=== PATIENT | male | born 1965 | race Caucasian/White ===

== ENCOUNTER 2021-04-23 08:44 | Inpatient (IN) | payer MEDICARE, MEDICAID ==
[~2021-04-23] VITALS: Ht 170.2 cm; Wt 72.8 kg
[2021-04-23] VITALS (33 sets, daily range): BP systolic 115–155; BP diastolic 59–103
[2021-04-23] MEDS ORDERED: LABETALOL 5MG/ML SYR 20 MG/4 ML SYRINGE IV ONE (09:00)
[2021-04-23] MEDS ORDERED: NICARDIPINE 50 MG in SODIUM CHLORIDE 0.9% 230 ML IV STA (09:07)
[2021-04-23] MEDS ORDERED: MANNITOL 20% 250 ML IV ONE (09:15)
[2021-04-23] MEDS ORDERED: DEXAMETHASONE 10 MG/ML VIAL IV ONE (09:15)
[2021-04-23] MEDS ORDERED: LEVETIRACETAM 500MG PREMIX 100 ML IV ONE (09:15)
[2021-04-23] MEDS ORDERED: NICARDIPINE 50 MG in SODIUM CHLORIDE 0.9% 230 ML IV SCH (09:30)
[2021-04-23] MEDS ORDERED: MANNITOL 20% 250 ML IV SCH (09:30)
[2021-04-23 09:42] LABS: CHLORIDE 104 mEq/L (98-107)
[2021-04-23 09:43] LABS: BASOPHILS % 1.2 % (0.0-2.0); EOSINOPHILS % 1.2 % (0.0-5.0); HEMATOCRIT. 42.8 % (42.0-52.0); HEMOGLOBIN. 14.2 g/dL (14.0-18.0); LYMPHOCYTES % 29.7 % (20.0-50.0); MEAN CORPUSCULAR VOLUME 96.6 fL (80.0-94.0); MEAN PLATELET VOLUME 8.6 fl (7.4-10.4); MONOCYTES % 9.7 % (2.0-8.0); NEUTROPHILS % 58.2 % (40.0-76.0); PLATELET 274 x1000/uL (130-400); RED BLOOD CELL COUNT 4.43 mill/uL (4.7-6.1); RED CELL DISTRIBUTION WIDTH 13.7 % (11.6-14.6)
[2021-04-23 09:47] LABS: ETHANOL BLOOD < 10 mg/dL
[2021-04-23] MEDS ORDERED: NALOXONE HCL 0.4MG/ML VIAL IV PRN (10:15)
[2021-04-23] MEDS: DEXT 5%/LACTATED RINGERS 1,000 ML IV SCH (10:20)
[2021-04-23] MEDS: MORPHINE SULFATE 2 MG/ML CPJ (NOT FOR IM USE) IV PRN ×4 (10:47→23:17)
[2021-04-23] MEDS ORDERED: ACETAMINOPHEN 650MG/20.3ML UDC GT PRN (11:00)
[2021-04-23] MEDS ORDERED: ACETAMINOPHEN 650MG SUPP PR PRN (11:00)
[2021-04-23] MEDS ORDERED: NICARDIPINE 100 MG in SODIUM CHLORIDE 0.9% 60 ML IV PRN (11:00)
[2021-04-23] MEDS ORDERED: ONDANSETRON HCL 4MG/2ML INJ IV PRN (11:00)
[2021-04-23 11:08] LABS: PROTHROMBIN TIME 11.2 sec (9.6-11.0)
[2021-04-23 11:27] LABS: CLARITY URINE CLEAR (CLEAR); COLOR URINE YELLOW (YELLOW); KETONES URINE NEGATIVE (NEGATIVE); LEUKOCYTE ESTERASE URINE NEGATIVE (NEGATIVE); NITRITE URINE NEGATIVE (NEGATIVE); OCCULT BLOOD URINE NEGATIVE (NEGATIVE); PROTEIN URINE 2+ (NEGATIVE); SPECIFIC GRAVITY URINE 1.015 (1.005-1.030)
[2021-04-23] MEDS ORDERED: KCL 20MEQ/100ML PREMIX 100 ML IV NR (11:30)
[2021-04-23 12:19] LABS: FOLIC ACID (FOLATE) SERUM 18.1 ng/mL (>5.38)
[2021-04-23 12:21] LABS: *AMPHETAMINES SCREEN URINE NEGATIVE (NEGATIVE); *BARBITURATES SCREEN URINE NEGATIVE (NEGATIVE); *BENZODIAZEPINES SCREEN URINE NEGATIVE (NEGATIVE); *COCAINE SCREEN URINE NEGATIVE (NEGATIVE); CANNABINOID URINE SCREEN NEGATIVE (NEGATIVE); METHADONE URINE SCREEN NEGATIVE (NEGATIVE); OPIATES URINE SCREEN NEGATIVE (NEGATIVE); PHENCYCLIDINE URINE SCREEN NEGATIVE (NEGATIVE)
[2021-04-23] MEDS: DEXAMETHASONE 4MG/ML 1ML VIAL IV SCH ×3 (12:21→23:16)
[2021-04-23] MEDS ORDERED: PNEUMOCOCCAL 23-VAL P-SAC VAC 0.5 ML IM ONE (16:45)
[2021-04-23] MEDS ORDERED: INFLUENZA VACCINE 05/PF 0.5 ML SYRINGE IM ONE (16:45)
[2021-04-23] MEDS ORDERED: OMEP20TA2 MT (17:13)
[2021-04-23] MEDS ORDERED: AMLO5TAB88 PO (17:13)
[2021-04-23] MEDS ORDERED: ALLO300T2 PO (17:13)
[2021-04-23] MEDS ORDERED: LOSA100T32 MT (17:13)
[2021-04-23] MEDS ORDERED: HYDR-4134 MT (17:13)
[2021-04-23] MEDS ORDERED: ERGO1250 (17:13)
[2021-04-23] MEDS ORDERED: DICL75TA5 PO (17:13)
[2021-04-23] MEDS ORDERED: *PATIENT'S OWN MEDICATION STORAGE XX SCH (17:30)
[2021-04-23] MEDS: NICARDIPINE 100 MG in SODIUM CHLORIDE 0.9% 60 ML IV PRN (17:35)
[2021-04-23] MEDS: LEVETIRACETAM 500MG PREMIX 100 ML IV SCH (21:44)
[2021-04-24] VITALS (96 sets, daily range): BP systolic 79–151; BP diastolic 37–95
[2021-04-24] MEDS: DEXT 5%/LACTATED RINGERS 1,000 ML IV SCH ×2 (01:39→09:39)
[2021-04-24] MEDS: MORPHINE SULFATE 2 MG/ML CPJ (NOT FOR IM USE) IV PRN ×5 (02:21→21:53)
[2021-04-24 05:38] LABS: HEMATOCRIT. 41.1 % (42.0-52.0); HEMOGLOBIN. 13.6 g/dL (14.0-18.0); MEAN CORPUSCULAR HEMOGLOBIN 32.8 pg (28.0-32.0); MEAN PLATELET VOLUME 9.7 fl (7.4-10.4); PLATELET 229 x1000/uL (130-400); RED BLOOD CELL COUNT 4.15 mill/uL (4.7-6.1); RED CELL DISTRIBUTION WIDTH 13.7 % (11.6-14.6)
[2021-04-24] MEDS: DEXAMETHASONE 4MG/ML 1ML VIAL IV SCH ×4 (05:59→23:11)
[2021-04-24] MEDS: PANTOPRAZOLE SODIUM 40 MG/VIAL IV SCH (08:59)
[2021-04-24 09:06] LABS: PLATELET ESTIMATE NORMAL
[2021-04-24] MEDS: LEVETIRACETAM 500MG PREMIX 100 ML IV SCH ×2 (09:39→20:30)
[2021-04-24 10:42] LABS: CHLORIDE 111 mEq/L (98-107)
[2021-04-24 10:48] LABS: PHOSPHORUS 2.8 mg/dL (2.5-4.9)
[2021-04-24] MEDS: NICARDIPINE 100 MG in SODIUM CHLORIDE 0.9% 60 ML IV PRN (13:19)
[2021-04-25] VITALS (66 sets, daily range): BP systolic 93–140; BP diastolic 47–88
[2021-04-25] MEDS: NICARDIPINE 100 MG in SODIUM CHLORIDE 0.9% 60 ML IV PRN (00:39)
[2021-04-25] MEDS: DEXT 5%/LACTATED RINGERS 1,000 ML IV SCH ×2 (02:14→21:29)
[2021-04-25] MEDS: DEXAMETHASONE 4MG/ML 1ML VIAL IV SCH ×2 (05:14→12:08)
[2021-04-25] MEDS: LEVETIRACETAM 500MG PREMIX 100 ML IV SCH ×2 (09:13→20:52)
[2021-04-25] MEDS: PANTOPRAZOLE SODIUM 40 MG/VIAL IV SCH (09:14)
[2021-04-25] MEDS ORDERED: AMLODIPINE 10MG TABLET PO SCH (10:30)
[2021-04-25] MEDS: AMLODIPINE 10MG TABLET PO SCH (11:29)
[2021-04-25] MEDS: MORPHINE SULFATE 2 MG/ML CPJ (NOT FOR IM USE) IV PRN ×4 (12:13→20:52)
[2021-04-25] MEDS: ACETAMINOPHEN 325MG TABLET PO PRN (15:11)
[2021-04-26] VITALS (46 sets, daily range): BP systolic 109–160; BP diastolic 28–113
[2021-04-26 05:23] LABS: CHLORIDE 110 mEq/L (98-107)
[2021-04-26 05:26] LABS: HEMATOCRIT. 39.3 % (42.0-52.0); HEMOGLOBIN. 12.7 g/dL (14.0-18.0); MEAN CORPUSCULAR HEMOGLOBIN 31.5 pg (28.0-32.0); MEAN CORPUSCULAR VOLUME 97.5 fL (80.0-94.0); MEAN PLATELET VOLUME 9.2 fl (7.4-10.4); PLATELET 221 x1000/uL (130-400); RED BLOOD CELL COUNT 4.03 mill/uL (4.7-6.1); RED CELL DISTRIBUTION WIDTH 13.8 % (11.6-14.6)
[2021-04-26] MEDS: AMLODIPINE 10MG TABLET PO SCH (08:38)
[2021-04-26] MEDS: LEVETIRACETAM 500MG PREMIX 100 ML IV SCH ×2 (08:39→21:36)
[2021-04-26] MEDS: PANTOPRAZOLE SODIUM 40 MG/VIAL IV SCH (08:43)
[2021-04-26] MEDS: MORPHINE SULFATE 2 MG/ML CPJ (NOT FOR IM USE) IV PRN ×3 (08:52→23:27)
[2021-04-26] MEDS: ACETAMINOPHEN 325MG TABLET PO PRN (14:25)
[2021-04-26 16:11] LABS: PLATELET ESTIMATE NORMAL
[2021-04-26] MEDS: CLONIDINE 0.1MG TABLET PO PRN (19:05)
[2021-04-27] VITALS: BP 143/78
[2021-04-27 04:00] VITALS: BP 143/78
[2021-04-27] MEDS: MORPHINE SULFATE 2 MG/ML CPJ (NOT FOR IM USE) IV PRN ×3 (07:36→18:24)
[2021-04-27] MEDS: LEVETIRACETAM 500MG PREMIX 100 ML IV SCH ×2 (09:07→20:40)
[2021-04-27] MEDS: PANTOPRAZOLE SODIUM 40 MG/VIAL IV SCH (09:07)
[2021-04-27] MEDS: AMLODIPINE 10MG TABLET PO SCH (09:08)
[2021-04-27 12:00] VITALS: BP 125/73
[2021-04-27] MEDS: LISINOPRIL 40MG TABLET PO SCH (14:06)
[2021-04-27 16:00] VITALS: BP 129/79
[2021-04-27 20:00] VITALS: BP 116/71
[2021-04-27] MEDS: FAMOTIDINE 20MG TABLET PO SCH (20:40)
[2021-04-28] VITALS: BP 134/72
[2021-04-28] MEDS: MORPHINE SULFATE 2 MG/ML CPJ (NOT FOR IM USE) IV PRN ×2 (00:21→05:39)
[2021-04-28 04:00] VITALS: BP 154/85
[2021-04-28] MEDS: FAMOTIDINE 20MG TABLET PO SCH ×2 (06:24→22:36)
[2021-04-28] MEDS: LISINOPRIL 40MG TABLET PO SCH (10:45)
[2021-04-28] MEDS: AMLODIPINE 10MG TABLET PO SCH (10:45)
[2021-04-28 12:00] VITALS: BP 105/61
[2021-04-28] MEDS: LEVETIRACETAM 500MG PREMIX 100 ML IV SCH ×2 (13:23→22:36)
[2021-04-28] MEDS: ACETAMINOPHEN 325MG TABLET PO PRN ×2 (13:45→22:49)
[2021-04-28] MEDS: CYANOCOBALAMIN 1000MCG/ML VIAL IM SCH (14:00)
[2021-04-28 16:00] VITALS: BP 156/76
[2021-04-28] MEDS: CLONIDINE 0.1MG TABLET PO PRN (16:57)
[2021-04-28 20:00] VITALS: BP 149/75
[2021-04-29] VITALS (7 sets, daily range): BP systolic 133–160; BP diastolic 70–96
[2021-04-29] MEDS: KETOROLAC 30MG/ML VIAL IV PRN ×3 (01:50→18:40)
[2021-04-29] MEDS: ACETAMINOPHEN 325MG TABLET PO PRN (03:56)
[2021-04-29] MEDS ORDERED: THIAMINE HCL 100MG TABLET PO SCH (09:00)
[2021-04-29] MEDS ORDERED: FOLIC ACID 1MG TABLET PO SCH (09:00)
[2021-04-29] MEDS: FAMOTIDINE 20MG TABLET PO SCH ×2 (09:40→20:17)
[2021-04-29] MEDS: LEVETIRACETAM 500MG TABLET PO SCH ×2 (09:40→16:22)
[2021-04-29] MEDS: LISINOPRIL 40MG TABLET PO SCH (09:40)
[2021-04-29] MEDS: AMLODIPINE 10MG TABLET PO SCH (09:41)
[2021-04-29] MEDS: CYANOCOBALAMIN 1000MCG/ML VIAL IM SCH (09:41)
[2021-04-29] MEDS ORDERED: ATENOLOL 25MG TABLET PO SCH (10:30)
[2021-04-29] MEDS: BUTALBITAL/ACETAMINOPHEN/CAFFEINE 50/325/40MG TABLET PO PRN ×2 (14:51→20:23)
[2021-04-29] MEDS ORDERED: TOPUD PO (20:58)
[2021-05-11] MEDS ORDERED: CYANOCOBALAMIN 1000MCG/ML VIAL IM SCH (09:00)
== END 2021-04-29 21:50 | DRG 65 ==
LOC: ER 09:07 → EDBEDREQTM 09:12 → EDBEDREQSVC 09:19 → EDBEDREQ 09:19 → EDBEDREQTM 09:19 → MICUSO 09:57 → EDBEDREQTM 09:59 → EDBEDREQ 09:59 → ENRESERV 15:28 → 6EST 04-26 23:41
PROVIDERS: ADMIT Internal Medicine; ATTEND Internal Medicine
DX: I61.5 Nontraumatic intracerebral hemorrhage, intraventricular (principal); I16.1 Hypertensive emergency; G81.94 Hemiplegia, unspecified affecting left nondominant side; R47.01 Aphasia; R41.4 Neurologic neglect syndrome; E87.6 Hypokalemia; E88.09 Other disorders of plasma-protein metabolism, not elsewhere classified; M19.90 Unspecified osteoarthritis, unspecified site; D64.9 Anemia, unspecified; Z20.822 Contact with and (suspected) exposure to COVID-19; E53.8 Deficiency of other specified B group vitamins; R53.81 Other malaise; R47.81 Slurred speech; I61.0 Nontraumatic intracerebral hemorrhage in hemisphere, subcortical; Z91.14 Patient's other noncompliance with medication regimen; Z82.49 Family history of ischemic heart disease and other diseases of the circulatory system; Z91.19 Patient's noncompliance with other medical treatment and regimen
CPT/HCPCS: 36415; 71045; 80048; 80053; 80305; 80320; 81003; 82607; 82746; 82962; 83540; 83550; 83735; 84100; 84443; 84484; 85025; 86850; 86900; 87426; 93005; 93970; 97110; 97116; 97162; 97166; 97530; 99291; C9113; J1100; J1885; J1953; J2270; J2405; J3420; J3480; J3490; J7040; J7050; G0480

== ENCOUNTER 2021-04-29 22:10 | Inpatient (IN) | payer MEDICARE, MEDICAID ==
[~2021-04-29] VITALS: Ht 170.2 cm; Wt 61.9 kg
[2021-04-29 22:10] VITALS: BP 140/70
[~2021-04-29 22:10] MED LIST: ALLO300T2 PO; AMLO5TAB88 PO; DICL75TA5 PO; ERGO1250; HYDR-4134 MT; LOSA100T32 MT; OMEP20TA2 MT; TOPUD PO
[2021-04-29] MEDS ORDERED: CLONIDINE 0.1MG TABLET PO PRN (22:45)
[2021-04-29] MEDS ORDERED: ONDANSETRON HCL 4MG/2ML INJ IV PRN (22:45)
[2021-04-29] MEDS ORDERED: ACETAMINOPHEN 650MG SUPP PR PRN (22:45)
[2021-04-29] MEDS: ACETAMINOPHEN 325MG TABLET PO PRN (23:35)
[2021-04-30] MEDS ORDERED: *PATIENT'S OWN MEDICATION STORAGE XX SCH (01:15)
[2021-04-30] MEDS: KETOROLAC 30MG/ML VIAL IV PRN ×3 (02:07→18:13)
[2021-04-30] MEDS: FAMOTIDINE 20MG TABLET PO SCH ×4 (05:42→22:44)
[2021-04-30] MEDS: BUTALBITAL/ACETAMINOPHEN/CAFFEINE 50/325/40MG TABLET PO PRN ×3 (05:47→15:25)
[2021-04-30 07:30] LABS: BASOPHILS % 0.3 % (0.0-2.0); HEMATOCRIT. 40.6 % (42.0-52.0); LYMPHOCYTES % 20.6 % (20.0-50.0); MEAN CORPUSCULAR HEMOGLOBIN 32.7 pg (28.0-32.0); MEAN CORPUSCULAR VOLUME 94.4 fL (80.0-94.0); MEAN PLATELET VOLUME 8.8 fl (7.4-10.4); MONOCYTES % 10.4 % (2.0-8.0); NEUTROPHILS % 66.7 % (40.0-76.0); PLATELET 263 x1000/uL (130-400); RED CELL DISTRIBUTION WIDTH 13.2 % (11.6-14.6)
[2021-04-30 07:46] LABS: CHLORIDE 101 mEq/L (98-107)
[2021-04-30 08:00] VITALS: BP 133/61
[2021-04-30] MEDS ORDERED: ATENOLOL 25MG TABLET PO SCH (09:00)
[2021-04-30] MEDS: AMLODIPINE 10MG TABLET PO SCH (09:40)
[2021-04-30] MEDS: FOLIC ACID 1MG TABLET PO SCH (09:40)
[2021-04-30] MEDS: LEVETIRACETAM 500MG TABLET PO SCH ×2 (09:40→18:12)
[2021-04-30] MEDS: LISINOPRIL 40MG TABLET PO SCH (09:41)
[2021-04-30] MEDS: THIAMINE HCL 100MG TABLET PO SCH (09:41)
[2021-04-30] MEDS: CYANOCOBALAMIN 1000MCG/ML VIAL IM SCH (09:49)
[2021-04-30] MEDS ORDERED: INFLUENZA VACCINE 05/PF 0.5 ML SYRINGE IM ONE (12:00)
[2021-04-30] MEDS ORDERED: IOHEXOL-350 100 ML BOTTLE ONE (12:07)
[2021-04-30] MEDS: ACETAMINOPHEN 325MG TABLET PO PRN (15:25)
[2021-04-30 20:00] VITALS: BP 167/77
[2021-05-01] MEDS: FAMOTIDINE 20MG TABLET PO SCH ×4 (07:07→20:38)
[2021-05-01 07:10] LABS: HEMATOCRIT. 44.9 % (42.0-52.0); HEMOGLOBIN. 15.5 g/dL (14.0-18.0); MEAN CORPUSCULAR HEMOGLOBIN 32.4 pg (28.0-32.0); MEAN CORPUSCULAR VOLUME 93.6 fL (80.0-94.0); MEAN PLATELET VOLUME 9.4 fl (7.4-10.4); PLATELET 284 x1000/uL (130-400); RED CELL DISTRIBUTION WIDTH 13.3 % (11.6-14.6)
[2021-05-01 07:28] LABS: CHLORIDE 98 mEq/L (98-107)
[2021-05-01 08:00] VITALS: BP 166/82
[2021-05-01] MEDS: FOLIC ACID 1MG TABLET PO SCH (09:37)
[2021-05-01] MEDS: HYDRALAZINE HCL 50MG TABLET PO SCH ×3 (09:37→21:11)
[2021-05-01] MEDS: LEVETIRACETAM 500MG TABLET PO SCH ×2 (09:37→18:24)
[2021-05-01] MEDS: CYANOCOBALAMIN 1000MCG/ML VIAL IM SCH (09:37)
[2021-05-01] MEDS: AMLODIPINE 10MG TABLET PO SCH (09:38)
[2021-05-01] MEDS: LISINOPRIL 40MG TABLET PO SCH (09:39)
[2021-05-01] MEDS: THIAMINE HCL 100MG TABLET PO SCH (09:39)
[2021-05-01] MEDS ORDERED: LACTULOSE 20G/30ML UDC PO SCH (12:00)
[2021-05-01 13:53] LABS: PLATELET ESTIMATE NORMAL
[2021-05-01] MEDS: KETOROLAC 30MG/ML VIAL IV PRN (15:06)
[2021-05-01] MEDS: BUTALBITAL/ACETAMINOPHEN/CAFFEINE 50/325/40MG TABLET PO PRN (18:24)
[2021-05-01] MEDS ORDERED: NA PHOS,M-B/NA PHOS,DI-BA ENEMA 118ML PR NR (19:00)
[2021-05-01 20:00] VITALS: BP 136/75
[2021-05-01] MEDS: LACTULOSE 20G/30ML UDC PO SCH (20:38)
[2021-05-01 21:31] LABS: CLARITY URINE CLEAR (CLEAR); COLOR URINE YELLOW (YELLOW); KETONES URINE NEGATIVE (NEGATIVE); LEUKOCYTE ESTERASE URINE TRACE (NEGATIVE); NITRITE URINE NEGATIVE (NEGATIVE); OCCULT BLOOD URINE NEGATIVE (NEGATIVE); PROTEIN URINE 2+ (NEGATIVE); SPECIFIC GRAVITY URINE 1.017 (1.005-1.030)
[2021-05-02] MEDS: LACTULOSE 20G/30ML UDC PO SCH (03:25)
[2021-05-02] MEDS ORDERED: FAMOTIDINE 20MG TABLET PO SCH (03:45)
[2021-05-02] MEDS: FAMOTIDINE 20MG TABLET PO SCH ×2 (06:14→17:51)
[2021-05-02] MEDS: HYDRALAZINE HCL 50MG TABLET PO SCH ×3 (06:14→22:19)
[2021-05-02] MEDS: BUTALBITAL/ACETAMINOPHEN/CAFFEINE 50/325/40MG TABLET PO PRN (06:18)
[2021-05-02 08:26] VITALS: BP 156/75
[2021-05-02 08:42] LABS: CHLORIDE 103 mEq/L (98-107)
[2021-05-02 08:43] LABS: BASOPHILS % 0.5 % (0.0-2.0); EOSINOPHILS % 0.1 % (0.0-5.0); HEMATOCRIT. 45.7 % (42.0-52.0); HEMOGLOBIN. 15.7 g/dL (14.0-18.0); LYMPHOCYTES % 8.2 % (20.0-50.0); MEAN CORPUSCULAR HEMOGLOBIN 32.5 pg (28.0-32.0); MEAN CORPUSCULAR VOLUME 94.7 fL (80.0-94.0); MEAN PLATELET VOLUME 8.8 fl (7.4-10.4); MONOCYTES % 10.9 % (2.0-8.0); NEUTROPHILS % 80.3 % (40.0-76.0); PLATELET 264 x1000/uL (130-400); RED BLOOD CELL COUNT 4.83 mill/uL (4.7-6.1); RED CELL DISTRIBUTION WIDTH 13.6 % (11.6-14.6)
[2021-05-02] MEDS: CYANOCOBALAMIN 1000MCG/ML VIAL IM SCH (09:50)
[2021-05-02] MEDS: LEVETIRACETAM 500MG TABLET PO SCH ×2 (09:50→17:51)
[2021-05-02] MEDS: FOLIC ACID 1MG TABLET PO SCH (09:50)
[2021-05-02] MEDS: ACETAMINOPHEN 500MG TABLET PO SCH ×3 (09:51→22:18)
[2021-05-02] MEDS: AMLODIPINE 10MG TABLET PO SCH (09:51)
[2021-05-02] MEDS: LISINOPRIL 40MG TABLET PO SCH (09:56)
[2021-05-02] MEDS: THIAMINE HCL 100MG TABLET PO SCH (09:56)
[2021-05-02 20:00] VITALS: BP 129/70
[2021-05-03] MEDS: ACETAMINOPHEN 500MG TABLET PO SCH ×4 (02:41→21:38)
[2021-05-03] MEDS: HYDRALAZINE HCL 50MG TABLET PO SCH ×3 (06:00→21:38)
[2021-05-03 06:29] LABS: BASOPHILS % 0.5 % (0.0-2.0); HEMATOCRIT. 42.4 % (42.0-52.0); HEMOGLOBIN. 14.3 g/dL (14.0-18.0); LYMPHOCYTES % 14.8 % (20.0-50.0); MEAN CORPUSCULAR HEMOGLOBIN 32.3 pg (28.0-32.0); MEAN CORPUSCULAR VOLUME 95.9 fL (80.0-94.0); MEAN PLATELET VOLUME 9.2 fl (7.4-10.4); MONOCYTES % 13.9 % (2.0-8.0); NEUTROPHILS % 69.8 % (40.0-76.0); PLATELET 259 x1000/uL (130-400); RED BLOOD CELL COUNT 4.42 mill/uL (4.7-6.1); RED CELL DISTRIBUTION WIDTH 13.8 % (11.6-14.6)
[2021-05-03] MEDS: FAMOTIDINE 20MG TABLET PO SCH ×2 (06:32→18:10)
[2021-05-03] MEDS: CYANOCOBALAMIN 1000MCG/ML VIAL IM SCH (08:22)
[2021-05-03] MEDS: THIAMINE HCL 100MG TABLET PO SCH (08:23)
[2021-05-03] MEDS: LISINOPRIL 40MG TABLET PO SCH ×2 (08:23→08:26)
[2021-05-03] MEDS: LEVETIRACETAM 500MG TABLET PO SCH ×2 (08:28→18:10)
[2021-05-03] MEDS: AMLODIPINE 10MG TABLET PO SCH (08:29)
[2021-05-03] MEDS: FOLIC ACID 1MG TABLET PO SCH (08:44)
[2021-05-03 09:36] VITALS: BP_SYST 85; BP_SYST 93; BP_SYST 94; BP_DIAS 44; BP_DIAS 55; BP_DIAS 64
[2021-05-03] MEDS: BUTALBITAL/ACETAMINOPHEN/CAFFEINE 50/325/40MG TABLET PO PRN ×2 (13:02→18:05)
[2021-05-03 20:00] VITALS: BP 112/54
[2021-05-03] MEDS: AMOXICILLIN 500 MG CAPSULE PO SCH (21:37)
[2021-05-04] MEDS: ACETAMINOPHEN 500MG TABLET PO SCH ×4 (03:00→22:27)
[2021-05-04] MEDS: HYDRALAZINE HCL 50MG TABLET PO SCH (05:31)
[2021-05-04] MEDS: FAMOTIDINE 20MG TABLET PO SCH ×2 (06:44→17:26)
[2021-05-04 08:00] VITALS: BP 103/57
[2021-05-04] MEDS: AMLODIPINE 10MG TABLET PO SCH (10:00)
[2021-05-04] MEDS: LISINOPRIL 40MG TABLET PO SCH (10:00)
[2021-05-04] MEDS: CYANOCOBALAMIN 1000MCG/ML VIAL IM SCH (10:01)
[2021-05-04] MEDS: LEVETIRACETAM 500MG TABLET PO SCH ×2 (10:02→17:25)
[2021-05-04] MEDS: THIAMINE HCL 100MG TABLET PO SCH (10:02)
[2021-05-04] MEDS: AMOXICILLIN 500 MG CAPSULE PO SCH ×2 (10:02→22:26)
[2021-05-04] MEDS: FOLIC ACID 1MG TABLET PO SCH (10:03)
[2021-05-04] MEDS: BUTALBITAL/ACETAMINOPHEN/CAFFEINE 50/325/40MG TABLET PO PRN ×2 (11:09→17:28)
[2021-05-04] MEDS: KETOROLAC 30MG/ML VIAL IV PRN (14:08)
[2021-05-04 15:26] LABS: BASOPHILS % 0.4 % (0.0-2.0); EOSINOPHILS % 1.9 % (0.0-5.0); HEMATOCRIT. 41.8 % (42.0-52.0); MEAN CORPUSCULAR HEMOGLOBIN 31.7 pg (28.0-32.0); MEAN CORPUSCULAR VOLUME 94.5 fL (80.0-94.0); MEAN PLATELET VOLUME 8.5 fl (7.4-10.4); MONOCYTES % 9.8 % (2.0-8.0); NEUTROPHILS % 72.9 % (40.0-76.0); PLATELET 256 x1000/uL (130-400); RED BLOOD CELL COUNT 4.43 mill/uL (4.7-6.1); RED CELL DISTRIBUTION WIDTH 13.4 % (11.6-14.6)
[2021-05-04 20:00] VITALS: BP 117/66
[2021-05-05] MEDS: ACETAMINOPHEN 500MG TABLET PO SCH ×4 (05:56→22:00)
[2021-05-05 06:14] LABS: BASOPHILS % 0.6 % (0.0-2.0); EOSINOPHILS % 2.4 % (0.0-5.0); HEMATOCRIT. 41.2 % (42.0-52.0); HEMOGLOBIN. 13.7 g/dL (14.0-18.0); LYMPHOCYTES % 18.5 % (20.0-50.0); MEAN CORPUSCULAR HEMOGLOBIN 32.1 pg (28.0-32.0); MEAN CORPUSCULAR VOLUME 96.1 fL (80.0-94.0); MEAN PLATELET VOLUME 8.1 fl (7.4-10.4); NEUTROPHILS % 69.5 % (40.0-76.0); PLATELET 247 x1000/uL (130-400); RED BLOOD CELL COUNT 4.28 mill/uL (4.7-6.1); RED CELL DISTRIBUTION WIDTH 13.7 % (11.6-14.6)
[2021-05-05] MEDS: FAMOTIDINE 20MG TABLET PO SCH ×2 (06:23→16:57)
[2021-05-05 08:00] VITALS: BP 108/68
[2021-05-05] MEDS: AMLODIPINE 10MG TABLET PO SCH (09:00)
[2021-05-05] MEDS: LISINOPRIL 40MG TABLET PO SCH (09:00)
[2021-05-05] MEDS: AMOXICILLIN 500 MG CAPSULE PO SCH ×2 (09:18→22:00)
[2021-05-05] MEDS: THIAMINE HCL 100MG TABLET PO SCH (09:19)
[2021-05-05] MEDS: LEVETIRACETAM 500MG TABLET PO SCH ×2 (09:19→16:57)
[2021-05-05] MEDS: FOLIC ACID 1MG TABLET PO SCH (09:19)
[2021-05-05] MEDS: BUTALBITAL/ACETAMINOPHEN/CAFFEINE 50/325/40MG TABLET PO PRN ×2 (09:29→14:18)
[2021-05-05 20:00] VITALS: BP 113/73
[2021-05-06] MEDS: ACETAMINOPHEN 500MG TABLET PO SCH ×2 (02:52→09:42)
[2021-05-06] MEDS: FAMOTIDINE 20MG TABLET PO SCH ×2 (06:10→16:58)
[2021-05-06 06:57] LABS: BASOPHILS % 0.7 % (0.0-2.0); EOSINOPHILS % 2.7 % (0.0-5.0); HEMATOCRIT. 41.2 % (42.0-52.0); LYMPHOCYTES % 24.5 % (20.0-50.0); MEAN CORPUSCULAR HEMOGLOBIN 32.5 pg (28.0-32.0); MEAN CORPUSCULAR VOLUME 95.8 fL (80.0-94.0); MEAN PLATELET VOLUME 8.5 fl (7.4-10.4); MONOCYTES % 8.4 % (2.0-8.0); NEUTROPHILS % 63.7 % (40.0-76.0); PLATELET 277 x1000/uL (130-400); RED CELL DISTRIBUTION WIDTH 13.6 % (11.6-14.6)
[2021-05-06 07:44] LABS: CHLORIDE 106 mEq/L (98-107)
[2021-05-06 08:00] VITALS: BP 114/79
[2021-05-06] MEDS: BUTALBITAL/ACETAMINOPHEN/CAFFEINE 50/325/40MG TABLET PO PRN ×2 (09:34→16:57)
[2021-05-06] MEDS: LEVETIRACETAM 500MG TABLET PO SCH ×2 (09:35→16:57)
[2021-05-06] MEDS: AMLODIPINE 10MG TABLET PO SCH (09:35)
[2021-05-06] MEDS: AMOXICILLIN 500 MG CAPSULE PO SCH ×2 (09:35→20:19)
[2021-05-06] MEDS: LISINOPRIL 40MG TABLET PO SCH (09:36)
[2021-05-06] MEDS: THIAMINE HCL 100MG TABLET PO SCH (09:36)
[2021-05-06] MEDS: FOLIC ACID 1MG TABLET PO SCH (09:36)
[2021-05-06] MEDS: ACETAMINOPHEN 325MG TABLET PO PRN (12:17)
[2021-05-06] MEDS: LIDOCAINE 5% PATCH TOP SCH (16:58)
[2021-05-06 20:00] VITALS: BP 121/77
[2021-05-07] MEDS: ACETAMINOPHEN 325MG TABLET PO PRN ×2 (06:18→17:36)
[2021-05-07] MEDS: FAMOTIDINE 20MG TABLET PO SCH ×2 (06:18→17:35)
[2021-05-07 08:28] VITALS: BP 116/71
[2021-05-07] MEDS: LIDOCAINE 5% PATCH TOP SCH (09:12)
[2021-05-07] MEDS: FOLIC ACID 1MG TABLET PO SCH (09:57)
[2021-05-07] MEDS: AMOXICILLIN 500 MG CAPSULE PO SCH ×3 (09:57→21:33)
[2021-05-07] MEDS: LEVETIRACETAM 500MG TABLET PO SCH ×2 (09:58→17:35)
[2021-05-07] MEDS: AMLODIPINE 10MG TABLET PO SCH (09:58)
[2021-05-07] MEDS: THIAMINE HCL 100MG TABLET PO SCH (09:58)
[2021-05-07] MEDS: LISINOPRIL 40MG TABLET PO SCH (09:59)
[2021-05-07] MEDS: BUTALBITAL/ACETAMINOPHEN/CAFFEINE 50/325/40MG TABLET PO PRN ×2 (10:00→14:46)
[2021-05-07 20:00] VITALS: BP 108/71
[2021-05-08] MEDS: FAMOTIDINE 20MG TABLET PO SCH ×2 (05:17→17:16)
[2021-05-08] MEDS: AMOXICILLIN 500 MG CAPSULE PO SCH ×3 (05:18→22:12)
[2021-05-08 08:00] VITALS: BP 107/66
[2021-05-08] MEDS: LIDOCAINE 5% PATCH TOP SCH (08:56)
[2021-05-08] MEDS: FOLIC ACID 1MG TABLET PO SCH (08:58)
[2021-05-08] MEDS: LEVETIRACETAM 500MG TABLET PO SCH ×2 (08:59→17:15)
[2021-05-08] MEDS: AMLODIPINE 10MG TABLET PO SCH (08:59)
[2021-05-08] MEDS: THIAMINE HCL 100MG TABLET PO SCH (09:00)
[2021-05-08] MEDS: LISINOPRIL 40MG TABLET PO SCH (09:00)
[2021-05-08] MEDS: BUTALBITAL/ACETAMINOPHEN/CAFFEINE 50/325/40MG TABLET PO PRN (09:02)
[2021-05-08] MEDS: ACETAMINOPHEN 325MG TABLET PO PRN (11:08)
[2021-05-08 20:00] VITALS: BP 109/78
[2021-05-08] MEDS: METHYL SALICYLATE/MENTHOL CREAM 85GM TOP SCH (22:12)
[2021-05-09] MEDS: ACETAMINOPHEN 325MG TABLET PO PRN ×3 (02:25→17:09)
[2021-05-09] MEDS: FAMOTIDINE 20MG TABLET PO SCH ×2 (05:43→17:07)
[2021-05-09] MEDS: AMOXICILLIN 500 MG CAPSULE PO SCH ×3 (05:43→21:14)
[2021-05-09 08:00] VITALS: BP 110/76
[2021-05-09] MEDS: FOLIC ACID 1MG TABLET PO SCH (09:01)
[2021-05-09] MEDS: LEVETIRACETAM 500MG TABLET PO SCH ×2 (09:02→17:07)
[2021-05-09] MEDS: THIAMINE HCL 100MG TABLET PO SCH (09:03)
[2021-05-09] MEDS: AMLODIPINE 10MG TABLET PO SCH (09:03)
[2021-05-09] MEDS: LISINOPRIL 40MG TABLET PO SCH (09:04)
[2021-05-09] MEDS: METHYL SALICYLATE/MENTHOL CREAM 85GM TOP SCH ×3 (09:06→17:07)
[2021-05-09] MEDS: LIDOCAINE 5% PATCH TOP SCH (09:07)
[2021-05-09 20:00] VITALS: BP 110/69
[2021-05-09] MEDS: BUTALBITAL/ACETAMINOPHEN/CAFFEINE 50/325/40MG TABLET PO PRN (21:15)
[2021-05-10] MEDS: METHYL SALICYLATE/MENTHOL CREAM 85GM TOP SCH ×5 (00:36→20:40)
[2021-05-10] MEDS: BUTALBITAL/ACETAMINOPHEN/CAFFEINE 50/325/40MG TABLET PO PRN ×3 (03:57→21:37)
[2021-05-10] MEDS: ACETAMINOPHEN 325MG TABLET PO PRN (06:18)
[2021-05-10] MEDS: AMOXICILLIN 500 MG CAPSULE PO SCH ×2 (06:18→13:19)
[2021-05-10] MEDS: FAMOTIDINE 20MG TABLET PO SCH ×2 (06:19→16:41)
[2021-05-10 06:55] LABS: EOSINOPHILS % 4.8 % (0.0-5.0); HEMATOCRIT. 41.1 % (42.0-52.0); HEMOGLOBIN. 13.9 g/dL (14.0-18.0); LYMPHOCYTES % 26.5 % (20.0-50.0); MEAN CORPUSCULAR HEMOGLOBIN 32.2 pg (28.0-32.0); MEAN CORPUSCULAR VOLUME 95.3 fL (80.0-94.0); MEAN PLATELET VOLUME 8.4 fl (7.4-10.4); MONOCYTES % 11.4 % (2.0-8.0); NEUTROPHILS % 56.3 % (40.0-76.0); PLATELET 280 x1000/uL (130-400); RED BLOOD CELL COUNT 4.31 mill/uL (4.7-6.1); RED CELL DISTRIBUTION WIDTH 13.5 % (11.6-14.6)
[2021-05-10 07:12] LABS: CHLORIDE 107 mEq/L (98-107)
[2021-05-10 08:10] VITALS: BP 91/53
[2021-05-10] MEDS: AMLODIPINE 10MG TABLET PO SCH (09:00)
[2021-05-10] MEDS: LISINOPRIL 40MG TABLET PO SCH (09:00)
[2021-05-10] MEDS: FOLIC ACID 1MG TABLET PO SCH (09:37)
[2021-05-10] MEDS: LEVETIRACETAM 500MG TABLET PO SCH ×2 (09:37→16:40)
[2021-05-10] MEDS: THIAMINE HCL 100MG TABLET PO SCH (09:38)
[2021-05-10] MEDS: LIDOCAINE 5% PATCH TOP SCH (09:42)
[2021-05-10 20:00] VITALS: BP 121/74
[2021-05-11 06:12] LABS: CHLORIDE 107 mEq/L (98-107)
[2021-05-11] MEDS: FAMOTIDINE 20MG TABLET PO SCH ×2 (06:14→17:43)
[2021-05-11 06:38] LABS: HEPATITIS B SURFACE ANTIGEN NEGATIVE
[2021-05-11] MEDS: FOLIC ACID 1MG TABLET PO SCH (08:59)
[2021-05-11] MEDS: CYANOCOBALAMIN 1000MCG/ML VIAL IM SCH (08:59)
[2021-05-11] MEDS: LEVETIRACETAM 500MG TABLET PO SCH ×2 (08:59→17:43)
[2021-05-11] MEDS: AMLODIPINE 10MG TABLET PO SCH (09:01)
[2021-05-11] MEDS: THIAMINE HCL 100MG TABLET PO SCH (09:01)
[2021-05-11] MEDS: LISINOPRIL 40MG TABLET PO SCH (09:02)
[2021-05-11] MEDS: METHYL SALICYLATE/MENTHOL CREAM 85GM TOP SCH ×4 (09:02→20:23)
[2021-05-11] MEDS: LIDOCAINE 5% PATCH TOP SCH (09:04)
[2021-05-11] MEDS: BUTALBITAL/ACETAMINOPHEN/CAFFEINE 50/325/40MG TABLET PO PRN (09:05)
[2021-05-11] MEDS ORDERED: LIDOCAINE HCL 1% 20ML VIAL (Pyxis) INJ INFIL STA (10:40)
[2021-05-11] MEDS ORDERED: ETHYL CHLORIDE CAN TOP ONE (10:45)
[2021-05-11] MEDS ORDERED: TRIAMCINOLONE ACETONIDE 40MG/ML 1ML VIAL IM ONE (10:45)
[2021-05-11] MEDS ORDERED: ETHYL CHLORIDE CAN TOP NR (11:30)
[2021-05-11] MEDS ORDERED: TRIAMCINOLONE ACETONIDE 40MG/ML 1ML VIAL IM NR (11:30)
[2021-05-11] MEDS ORDERED: LIDOCAINE HCL 1% 20ML VIAL (Pyxis) INJ INFIL NR (12:00)
[2021-05-11] MEDS ORDERED: BUPIVACAINE HCL/PF 0.5% (5MG/ML) 10ML INFIL NR (12:00)
[2021-05-11 20:00] VITALS: BP 100/61
[2021-05-12 05:59] LABS: AMYLASE 69 IU/L (25-115)
[2021-05-12 06:01] LABS: TOTAL IRON BINDING CAPACITY 313 ug/dL (250-450)
[2021-05-12] MEDS: FAMOTIDINE 20MG TABLET PO SCH ×2 (06:20→18:10)
[2021-05-12 08:00] VITALS: BP_SYST 100; BP_SYST 142; BP_DIAS 76; BP_DIAS 85
[2021-05-12] MEDS: FOLIC ACID 1MG TABLET PO SCH (08:43)
[2021-05-12] MEDS: LEVETIRACETAM 500MG TABLET PO SCH ×2 (08:43→18:10)
[2021-05-12] MEDS: THIAMINE HCL 100MG TABLET PO SCH (08:44)
[2021-05-12] MEDS: AMLODIPINE 10MG TABLET PO SCH (08:44)
[2021-05-12] MEDS: LISINOPRIL 40MG TABLET PO SCH (08:44)
[2021-05-12] MEDS: METHYL SALICYLATE/MENTHOL CREAM 85GM TOP SCH ×4 (08:45→20:46)
[2021-05-12] MEDS: LIDOCAINE 5% PATCH TOP SCH (08:46)
[2021-05-12] MEDS: BUTALBITAL/ACETAMINOPHEN/CAFFEINE 50/325/40MG TABLET PO PRN (08:47)
[2021-05-12 20:00] VITALS: BP 112/64
[2021-05-13] MEDS: BUTALBITAL/ACETAMINOPHEN/CAFFEINE 50/325/40MG TABLET PO PRN (04:36)
[2021-05-13] MEDS: FAMOTIDINE 20MG TABLET PO SCH ×2 (06:18→17:27)
[2021-05-13 08:19] VITALS: BP 123/70
[2021-05-13] MEDS: THIAMINE HCL 100MG TABLET PO SCH (09:06)
[2021-05-13] MEDS: LISINOPRIL 40MG TABLET PO SCH (09:06)
[2021-05-13] MEDS: FOLIC ACID 1MG TABLET PO SCH (09:06)
[2021-05-13] MEDS: AMLODIPINE 10MG TABLET PO SCH (09:07)
[2021-05-13] MEDS: LEVETIRACETAM 500MG TABLET PO SCH ×2 (09:07→17:27)
[2021-05-13] MEDS: LIDOCAINE 5% PATCH TOP SCH (09:08)
[2021-05-13] MEDS: METHYL SALICYLATE/MENTHOL CREAM 85GM TOP SCH ×4 (09:08→21:10)
[2021-05-13] MEDS ORDERED: BUPIVACAINE HCL/PF 0.5% (5MG/ML) 10ML INFIL NR (13:00)
[2021-05-13] MEDS ORDERED: LIDOCAINE HCL 1% 20ML VIAL (Pyxis) INJ INFIL NR (13:00)
[2021-05-13] MEDS ORDERED: TRIAMCINOLONE ACETONIDE 40MG/ML 1ML VIAL IM NR (13:00)
[2021-05-13 20:00] VITALS: BP 121/69
[2021-05-14] MEDS: FAMOTIDINE 20MG TABLET PO SCH ×2 (06:41→17:52)
[2021-05-14 08:00] VITALS: BP 102/62
[2021-05-14] MEDS: AMLODIPINE 10MG TABLET PO SCH (08:39)
[2021-05-14] MEDS: LEVETIRACETAM 500MG TABLET PO SCH ×2 (08:40→17:52)
[2021-05-14] MEDS: THIAMINE HCL 100MG TABLET PO SCH (08:40)
[2021-05-14] MEDS: LISINOPRIL 40MG TABLET PO SCH (08:40)
[2021-05-14] MEDS: FOLIC ACID 1MG TABLET PO SCH (08:40)
[2021-05-14] MEDS: METHYL SALICYLATE/MENTHOL CREAM 85GM TOP SCH ×4 (08:42→21:20)
[2021-05-14] MEDS: LIDOCAINE 5% PATCH TOP SCH (08:43)
[2021-05-14] MEDS: TERBINAFINE HCL 1% CREAM 30GM TOP SCH (14:14)
[2021-05-14 20:00] VITALS: BP 115/57
[2021-05-14] MEDS ORDERED: LIDOCAINE/PRILOCAINE CREAM 5 GM TUBE TOP ONE (21:00)
[2021-05-14] MEDS: LIDOCAINE HCL 5% OINT 35GM/TUBE TOP SCH (21:20)
[2021-05-15 06:17] LABS: AMYLASE 40 IU/L (25-115)
[2021-05-15] MEDS: FAMOTIDINE 20MG TABLET PO SCH ×2 (06:25→17:57)
[2021-05-15 08:06] VITALS: BP 144/82
[2021-05-15] MEDS: THIAMINE HCL 100MG TABLET PO SCH (08:37)
[2021-05-15] MEDS: LISINOPRIL 40MG TABLET PO SCH (08:39)
[2021-05-15] MEDS: LEVETIRACETAM 500MG TABLET PO SCH ×2 (08:39→17:57)
[2021-05-15] MEDS: FOLIC ACID 1MG TABLET PO SCH (08:39)
[2021-05-15] MEDS: AMLODIPINE 10MG TABLET PO SCH (08:39)
[2021-05-15] MEDS: LIDOCAINE 5% PATCH TOP SCH (08:40)
[2021-05-15] MEDS: TERBINAFINE HCL 1% CREAM 30GM TOP SCH (08:41)
[2021-05-15] MEDS: METHYL SALICYLATE/MENTHOL CREAM 85GM TOP SCH ×4 (08:42→20:17)
[2021-05-15] MEDS ORDERED: AMLO10TA4 PO (11:34)
[2021-05-15] MEDS ORDERED: LISI40TA13 PO (11:35)
[2021-05-15] MEDS ORDERED: KEPP500 PO (11:37)
[2021-05-15 17:06] LABS: 25-HYDROXY VITAMIN D3 14 ng/mL (.)
[2021-05-15 20:00] VITALS: BP 101/56
[2021-05-15] MEDS: LIDOCAINE HCL 5% OINT 35GM/TUBE TOP SCH (20:17)
[2021-05-16] MEDS: FAMOTIDINE 20MG TABLET PO SCH ×2 (06:27→16:28)
[2021-05-16 08:00] VITALS: BP 140/82
[2021-05-16] MEDS: FOLIC ACID 1MG TABLET PO SCH (08:30)
[2021-05-16] MEDS: LEVETIRACETAM 500MG TABLET PO SCH ×2 (08:30→16:28)
[2021-05-16] MEDS: LISINOPRIL 40MG TABLET PO SCH (08:30)
[2021-05-16] MEDS: THIAMINE HCL 100MG TABLET PO SCH (08:31)
[2021-05-16] MEDS: METHYL SALICYLATE/MENTHOL CREAM 85GM TOP SCH ×4 (08:31→20:09)
[2021-05-16] MEDS: AMLODIPINE 10MG TABLET PO SCH (08:31)
[2021-05-16] MEDS: TERBINAFINE HCL 1% CREAM 30GM TOP SCH (08:32)
[2021-05-16] MEDS: LIDOCAINE 5% PATCH TOP SCH (08:32)
[2021-05-16 20:00] VITALS: BP 104/62
[2021-05-16] MEDS: LIDOCAINE HCL 5% OINT 35GM/TUBE TOP SCH (20:07)
[2021-05-17] MEDS: FAMOTIDINE 20MG TABLET PO SCH ×2 (06:01→16:29)
[2021-05-17 08:00] VITALS: BP 99/57
[2021-05-17] MEDS: AMLODIPINE 10MG TABLET PO SCH (09:00)
[2021-05-17] MEDS: LISINOPRIL 40MG TABLET PO SCH (09:00)
[2021-05-17] MEDS: LEVETIRACETAM 500MG TABLET PO SCH ×2 (09:39→16:29)
[2021-05-17] MEDS: FOLIC ACID 1MG TABLET PO SCH (09:39)
[2021-05-17] MEDS: LIDOCAINE 5% PATCH TOP SCH ×2 (09:40→09:51)
[2021-05-17] MEDS: THIAMINE HCL 100MG TABLET PO SCH (09:40)
[2021-05-17] MEDS: METHYL SALICYLATE/MENTHOL CREAM 85GM TOP SCH ×4 (10:03→21:14)
[2021-05-17] MEDS: TERBINAFINE HCL 1% CREAM 30GM TOP SCH (10:04)
[2021-05-17 20:00] VITALS: BP 98/57
[2021-05-17] MEDS: LIDOCAINE HCL 5% OINT 35GM/TUBE TOP SCH (21:14)
[2021-05-18] MEDS: FAMOTIDINE 20MG TABLET PO SCH ×2 (06:13→16:12)
[2021-05-18 08:00] VITALS: BP 116/66
[2021-05-18] MEDS: CYANOCOBALAMIN 1000MCG/ML VIAL IM SCH (09:06)
[2021-05-18] MEDS: LEVETIRACETAM 500MG TABLET PO SCH ×2 (09:06→16:12)
[2021-05-18] MEDS: FOLIC ACID 1MG TABLET PO SCH (09:06)
[2021-05-18] MEDS: THIAMINE HCL 100MG TABLET PO SCH (09:06)
[2021-05-18] MEDS: AMLODIPINE 10MG TABLET PO SCH (09:06)
[2021-05-18] MEDS: LISINOPRIL 40MG TABLET PO SCH (09:07)
[2021-05-18] MEDS: METHYL SALICYLATE/MENTHOL CREAM 85GM TOP SCH ×4 (09:08→20:11)
[2021-05-18] MEDS: LIDOCAINE 5% PATCH TOP SCH (09:08)
[2021-05-18] MEDS: TERBINAFINE HCL 1% CREAM 30GM TOP SCH (09:08)
[2021-05-18 20:00] VITALS: BP 98/63
[2021-05-18] MEDS: LIDOCAINE HCL 5% OINT 35GM/TUBE TOP SCH (20:12)
[2021-05-19] MEDS: BUTALBITAL/ACETAMINOPHEN/CAFFEINE 50/325/40MG TABLET PO PRN (00:57)
[2021-05-19] MEDS: FAMOTIDINE 20MG TABLET PO SCH ×2 (07:00→17:38)
[2021-05-19 08:00] VITALS: BP 99/64
[2021-05-19] MEDS: AMLODIPINE 10MG TABLET PO SCH (08:55)
[2021-05-19] MEDS: FOLIC ACID 1MG TABLET PO SCH (08:55)
[2021-05-19] MEDS: LEVETIRACETAM 500MG TABLET PO SCH ×2 (08:55→17:38)
[2021-05-19] MEDS: THIAMINE HCL 100MG TABLET PO SCH (08:55)
[2021-05-19] MEDS: LISINOPRIL 40MG TABLET PO SCH (08:56)
[2021-05-19] MEDS: LIDOCAINE 5% PATCH TOP SCH (08:56)
[2021-05-19] MEDS: TERBINAFINE HCL 1% CREAM 30GM TOP SCH (09:00)
[2021-05-19] MEDS: METHYL SALICYLATE/MENTHOL CREAM 85GM TOP SCH ×4 (09:00→20:25)
[2021-05-19 20:00] VITALS: BP 101/65
[2021-05-19] MEDS: LIDOCAINE HCL 5% OINT 35GM/TUBE TOP SCH (20:25)
[2021-05-20] MEDS: FAMOTIDINE 20MG TABLET PO SCH ×2 (06:27→17:00)
[2021-05-20 08:00] VITALS: BP 101/63
[2021-05-20] MEDS: AMLODIPINE 10MG TABLET PO SCH (08:02)
[2021-05-20] MEDS: LISINOPRIL 40MG TABLET PO SCH (08:03)
[2021-05-20] MEDS: METHYL SALICYLATE/MENTHOL CREAM 85GM TOP SCH ×4 (08:31→21:17)
[2021-05-20] MEDS: THIAMINE HCL 100MG TABLET PO SCH (08:31)
[2021-05-20] MEDS: FOLIC ACID 1MG TABLET PO SCH (08:31)
[2021-05-20] MEDS: LEVETIRACETAM 500MG TABLET PO SCH ×2 (08:31→17:00)
[2021-05-20] MEDS: LIDOCAINE 5% PATCH TOP SCH (08:32)
[2021-05-20] MEDS: TERBINAFINE HCL 1% CREAM 30GM TOP SCH (08:32)
[2021-05-20] MEDS ORDERED: AMLO10TA4 MT (11:00)
[2021-05-20] MEDS ORDERED: KEPP500 MT (11:00)
[2021-05-20] MEDS ORDERED: CYAN10003 SL (11:00)
[2021-05-20] MEDS ORDERED: MULT-1146 MT (11:00)
[2021-05-20] MEDS ORDERED: FOLI-43 MT (11:00)
[2021-05-20 20:00] VITALS: BP 102/52
[2021-05-20] MEDS: LIDOCAINE HCL 5% OINT 35GM/TUBE TOP SCH (21:17)
[2021-05-21] MEDS: FAMOTIDINE 20MG TABLET PO SCH (06:07)
[2021-05-21] MEDS: LEVETIRACETAM 500MG TABLET PO SCH (08:37)
[2021-05-21] MEDS: FOLIC ACID 1MG TABLET PO SCH (08:37)
[2021-05-21] MEDS: THIAMINE HCL 100MG TABLET PO SCH (08:38)
[2021-05-21] MEDS: AMLODIPINE 10MG TABLET PO SCH (08:38)
[2021-05-21] MEDS: TERBINAFINE HCL 1% CREAM 30GM TOP SCH (08:43)
[2021-05-21] MEDS: METHYL SALICYLATE/MENTHOL CREAM 85GM TOP SCH (08:43)
[2021-05-21 09:00] VITALS: BP 129/77
[2021-05-21 09:37] VITALS: BP 129/77
[2021-05-21] MEDS: LIDOCAINE 5% PATCH TOP SCH (10:39)
== END 2021-05-21 11:15 | disposition home health service (06) | DRG 56 ==
PROVIDERS: ADMIT Physical Medicine & Rehabilitation Spinal Cord Injury Medicine; ATTEND Internal Medicine
PROC: 4A10X4Z Monitoring of Central Nervous Electrical Activity, External Approach (ICD-10-PCS; principal; 2021-05-07)
PROC: 0HBRXZZ Excision of Toe Nail, External Approach (ICD-10-PCS; 2021-05-14)
PROC: 0HBRXZZ Excision of Toe Nail, External Approach (ICD-10-PCS; 2021-05-14)
PROC: 0HBRXZZ Excision of Toe Nail, External Approach (ICD-10-PCS; 2021-05-14)
PROC: 0HBRXZZ Excision of Toe Nail, External Approach (ICD-10-PCS; 2021-05-14)
PROC: 0HBRXZZ Excision of Toe Nail, External Approach (ICD-10-PCS; 2021-05-14)
PROC: 0HBRXZZ Excision of Toe Nail, External Approach (ICD-10-PCS; 2021-05-14)
PROC: 0HBRXZZ Excision of Toe Nail, External Approach (ICD-10-PCS; 2021-05-14)
PROC: 0HBRXZZ Excision of Toe Nail, External Approach (ICD-10-PCS; 2021-05-14)
PROC: 0HBRXZZ Excision of Toe Nail, External Approach (ICD-10-PCS; 2021-05-14)
PROC: 0HBRXZZ Excision of Toe Nail, External Approach (ICD-10-PCS; 2021-05-14)
DX: I69.354 Hemiplegia and hemiparesis following cerebral infarction affecting left non-dominant side (principal); E43 Unspecified severe protein-calorie malnutrition; I61.5 Nontraumatic intracerebral hemorrhage, intraventricular; E87.1 Hypo-osmolality and hyponatremia; G93.40 Encephalopathy, unspecified; R41.4 Neurologic neglect syndrome; N39.0 Urinary tract infection, site not specified; R47.01 Aphasia; I16.1 Hypertensive emergency; N17.9 Acute kidney failure, unspecified; D64.9 Anemia, unspecified; E53.8 Deficiency of other specified B group vitamins; F32.A Depression, unspecified; I10 Essential (primary) hypertension; F10.11 Alcohol abuse, in remission; E83.51 Hypocalcemia; K70.9 Alcoholic liver disease, unspecified; M17.0 Bilateral primary osteoarthritis of knee; R26.89 Other abnormalities of gait and mobility; R47.1 Dysarthria and anarthria; R13.10 Dysphagia, unspecified; R53.81 Other malaise; B95.2 Enterococcus as the cause of diseases classified elsewhere; F17.210 Nicotine dependence, cigarettes, uncomplicated; L60.0 Ingrowing nail; L03.032 Cellulitis of left toe; L03.031 Cellulitis of right toe; G90.8 Other disorders of autonomic nervous system; Z82.49 Family history of ischemic heart disease and other diseases of the circulatory system; Z91.14 Patient's other noncompliance with medication regimen; Z91.19 Patient's noncompliance with other medical treatment and regimen; Z68.21 Body mass index [BMI] 21.0-21.9, adult
CPT/HCPCS: 36415; 70496; 71046; 73560; 76700; 76705; 76770; 80048; 80053; 80076; 81003; 82140; 82150; 82306; 82550; 82728; 83540; 83550; 84134; 85025; 86705; 86709; 86803; 87077; 87186; 87340; 90686; 92523; 92610; 93306; 93970; 97110; 97112; 97116; 97162; 97166; 97530; 97535; 97542; A6261; J1885; J2405; J3301; J3420; J3490; Q9967; A4315